=== PATIENT | female | born 1950 | race Caucasian/White ===

== ENCOUNTER 2022-07-31 09:52 | Inpatient (IN) ==
[2022-07-31] MEDS ORDERED: IOPAMIDOL 100 ML BOTTLE IV ONE (09:53)
[2022-07-31 10:46] LABS: POC Calcium, Ionized 1.18 (1.16-1.32); POC Creatinine 0.6 (0.6-1.2); POC Potassium 3.7 (3.3-5.1)
--- NOTE | 2022-07-31 11:24 | Emergency Department Note ---
HPI General Chief complaint: Extremity Injury, Lower Stated complaint: hip pain Time Seen by Provider: 07/31/22 10:06 Source: EMS Mode of arrival: EMS Limitations: physical limitation History of Present Illness HPI Narrative: Narrative: This is a 71-year-old female who presents to the emergency department with comp laints of right hip pain. Patient states she has history of chronic back pain with degenerative changes and scoliosis. She is seen the pain clinic for this. She had a CT scan of her lumbar spine yesterday and was called today telling her she has a hip fracture and to come to the emergency department. Patient states she has had right lower back and hip pain for months, however over the past sev eral days it has become much worse. It is severe enough she is unable to ambulate on her own. She has too much pain to move her right leg. She denies numbness in her legs. She has not had a fever. Patient has multiple medical problems. She denies cancer history. Related Data Home Medications Medication Instructions Recorded Confirmed aspirin 81 mg tablet,delayed 81 mg PO QDAY 12/03/14 07/31/22 release calcium carb,citrat 500 1 each PO DAILY 01/21/15 07/31/22 mg-magnesium #12 250 mg-vit D3 200 unit tablet fish oil-dha-epa 1,200 mg-144 1 each PO DAILY 01/21/15 07/31/22 mg-216 mg capsule multivitamin 1 each PO DAILY 01/21/15 07/31/22 flunisolide 25 mcg (0.025 %) nasal 2 spray NATO BID 05/29/15 07/31/22 spray cholecalciferol (vitamin D3) 50 2,000 unit PO DAILY 02/02/17 07/31/22 mcg (2,000 unit) tablet glucosamine 116 mg-chondroitin 100 1 cap PO BID 06/12/19 07/31/22 mg-dietary supplement #25 capsule coenzyme Q10 75 mg capsule (Ultra See Rx Instructions PO .COMPLEX 10/31/19 07/31/22 CoQ10) Estradiol Transdermal 0.4 mg transdermal QDAY 07/31/22 07/31/22 Lactobacillus 2 cap PO BID 07/31/22 07/31/22 acidophilus-Bifidobac.animalis 2.5 billion cell capsule (Daily Probiotic) fluticasone 500 mcg-salmeterol 50 1 ea inhalation BID 07/31/22 07/31/22 mcg/dose blistr powdr for inhalation (Advair Diskus) folic acid 1 mg PO QDAY 07/31/22 07/31/22 turmeric root extract 500 mg 1 mg PO BID 07/31/22 07/31/22 capsule (Curcuplex-95) Previous Rx's Medication Instructions Recorded diabetic shoes #2 ea 02/02/17 albuterol sulfate 90 mcg/actuation 180 mcg inhalation Q6H PRN 08/15/19 aerosol inhaler bronchospasm #18 grams VPAP #1 ea 11/08/19 mometasone-formoterol HFA 200 2 puff inhalation BID #13 grams 12/26/19 mcg-5 mcg/actuation aerosol inhaler (Dulera) azelastine 0.05 % eye drops 1 drp ophthalmic (eye) BID #6 mL 01/04/20 blood sugar diagnostic (OneTouch #50 ea 08/28/20 Verio test strips) blood-glucose meter (OneTouch #1 ea 08/28/20 Verio Meter) Testosterone Transdermal 5 mg transdermal .QD #30 grams 09/12/21 montelukast 10 mg tablet See Rx Instructions .Route 12/01/21 .COMPLEX #90 tabs omeprazole 40 mg capsule,delayed 40 mg PO QDAY #90 caps 12/16/21 release tolterodine 2 mg tablet 2 mg PO BID PRN overactive bladder 12/16/21 #180 tabs metaxalone 800 mg tablet 800 mg PO TID PRN muscle pain #270 01/30/22 tabs progesterone micronized 100 mg 100 mg PO QPM #90 caps 03/13/22 capsule gabapentin 600 mg tablet See Rx Instructions .Route 05/04/22 .COMPLEX #270 tabs losartan 25 mg tablet 25 mg PO QDAY #100 tabs 05/28/22 spironolactone 25 mg tablet 50 mg PO QDAY #180 tabs 05/29/22 tramadol 50 mg tablet 50 mg PO Q4H PRN pain #190 tabs 06/11/22 metoprolol succinate 50 mg 50 mg PO QDAY #90 tabs 06/16/22 tablet,extended release 24 hr celecoxib 200 mg capsule 200 mg PO QDAY #100 caps 06/22/22 modafinil 200 mg tablet 200 mg PO QAM #90 tabs 06/24/22 rosuvastatin 20 mg tablet 20 mg PO QDAY #90 tabs 06/24/22 citalopram 20 mg tablet 20 mg PO QDAY #90 tabs 07/15/22 levothyroxine 25 mcg tablet 25 mcg PO QDAY #90 tabs 07/15/22 ondansetron 4 mg disintegrating 4 mg PO Q6H PRN nausea and 07/17/22 tablet vomiting #20 tabs hydroxyzine HCl 25 mg tablet 25 mg PO BID PRN itching #60 tabs 07/28/22 oxycodone-acetaminophen 7.5 mg-325 1 tab PO Q4-6H PRN pain #40 tabs 07/28/22 mg tablet potassium chloride 10 mEq 10 meq PO BID #180 tabs 07/30/22 tablet,extended release Allergies Allergy/AdvReac Type Severity Reaction Status Date / Time nitrofurantoin Allergy Intermediate Does not Verified 07/31/22 09:55 [From Macrobid] recall what the reaction was morphine Allergy Unknown nausea, Verified 07/31/22 09:55 vomiting Amoxicillin AdvReac Intermediate yeast Verified 07/31/22 09:55 infection cefdinir AdvReac Intermediate Diarrhea Verified 07/31/22 09:55 pravastatin [From Pravachol] AdvReac Intermediate Chest Pain Verified 07/31/22 09:55 Zolpidem [From Ambien] AdvReac Intermediate psychosis Verified 07/31/22 09:55 bupropion AdvReac Mild uncontrollable Verified 07/31/22 09:55 movement droperidol AdvReac Mild crawls the Verified 07/31/22 09:55 dale lisinopril AdvReac Unknown Cough Verified 07/31/22 09:55 Review of Systems ROS ROS Narrative: Narrative: All systems ED: reviewed and negative except as stated. 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) Chronic kidney disease (CKD), stage II (mild) (Chronic) DDD (degenerative disc disease) (Chronic) Diabetes mellitus, type II (Chronic 03/16/11) Estrella-Danlos disease (Chronic) Gastroesophageal reflux (Chronic) Hyperlipidemia (Chronic) Hypertension, essential (Chronic) Hypopotassemia (Chronic) Mitral valve disorder (Chronic) Osteoarthrosis (Chronic) Sleep apnea (Chronic) Diabetic peripheral neuropathy (Chronic) Fundic gland polyps of stomach, benign (Chronic 05/29/15) Menopausal and postmenopausal disorder (Chronic) Insomnia (Chronic) Excessive daytime sleepiness (Chronic) Degenerative joint disease (Chronic) Peripheral Vascular Disease (Chronic) Adenoma of large intestine (Chronic) Mass (Chronic) Adverse reaction to drug (Chronic) Polycythemia (Chronic) Pain in right shoulder (Chronic) Chronic SI joint pain (Chronic) Other spondylosis with radiculopathy, cervical region (Chronic) Chronic pain (Chronic) Osteoarthritis of pelvis (Chronic) Osteoarthritis of hip (Chronic) Pulmonary hypertension (Chronic) Allergic rhinitis (Chronic) Diabetes mellitus with hyperglycemia (Chronic) Medicare annual wellness visit, initial (Chronic) Cervicalgia (Chronic) Depression (Chronic) Myofascial pain (Chronic) Medical History Alkalosis Allergic rhinitis Arthropathy Unspecified; multiple sites Asthma 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) Dr.Jeff Pendleton Blepharitis Borderline glaucoma with anatomical narrow angle Cervicalgia Chronic kidney disease (CKD), stage II (mild) Chronic pain Chronic SI joint pain Conjunctivitis, allergic, chronic DDD (degenerative disc disease) Degenerative joint disease Bilateral glenohumeral degenerative joint disease, severe Depression Diabetes mellitus with hyperglycemia Diabetes mellitus, type II (03/16/11) Diet controlled Diabetic peripheral neuropathy Edema Estrella-Danlos disease Excessive daytime sleepiness Fundic gland polyps of stomach, benign (05/29/15) 05/29/2015-Deep Gastroesophageal reflux Hyperlipidemia Hypertension, essential Hypertensive chronic kidney disease Hypopotassemia Insomnia Medicare annual wellness visit, initial Menopausal and postmenopausal disorder Mitral valve disorder Myofascial pain Nuclear sclerosis Obstructive sleep apnea Osteoarthritis of hip Osteoarthritis of pelvis Osteoarthrosis Other spondylosis with radiculopathy, cervical region Pain in right shoulder Pulmonary hypertension Pulmonary hypertension, secondary Radiculopathy, thoracic region Sleep apnea Central on BiPAP Spinal cord disease Scoliosis, idiopathic Spondylolysis of lumbosacral region Vitamin D deficiency Surgical History Abnormal colonoscopy 01/02/11 - adenoma. 05/25/16 -diverticuli, large villous adenoma. Do flexible sigmoidoscopy one year. 05/26/17-No villanous adenoma. Flexible sigmoidoscopy in May of 2018. Family history of total abdominal hysterectomy and bilateral salpingo- oophorectomy History of ankle fusion Left X2 History of bladder surgery History of carpal tunnel repair History of cataract surgery (04/02/14) 04/02/14 - Right eye and 04/17/14 Left eye History of cholecystectomy History of deviated nasal septum History of knee replacement Right History of left shoulder replacement 09/15/16 - Left reverse total shoulder replacement History of surgery SI Joint Injection Left w/sed 08/12/15 Shoulder Joint Injection Right w/sed 08/12/15 Revision of SCS Generator [facility] 01/25/15 TESI #1 T11-12 w/sed (01-13-11) History of tonsillectomy Hx of esophagogastroduodenoscopy (05/29/15) 05/29/2015-Adame Status post transposition of nerve Ulnar Nerve - Right Family History Unknown Depression "everyone" Cardiac disease "everyone" Brother Essential hypertension Skin Abnormalities squamous cell Sister Essential hypertension Father , at 73 years old Acute myocardial infarction Happened when he was 55 years old Mother Skin Abnormalities Social History Smoking Status: Never smoker Alcohol Intake Frequency: holiday/special occasion only Substance Use: does not use Exam Narrative Narrative: Narrative: General Limitations: physical limitation General appearance: Present alert, obese and other (Patient is laying comfortably on the gurney.) Head Head: Present atraumatic and normocephalic Eye Eye: Present EOMI Respiratory Respiratory: Present normal lung sounds bilaterally Cardiovascular Cardiovascular: Present regular rate and systolic murmur (1/6) Adbominal Abdominal: Present soft; Absent tenderness Back Back: Present normal inspection and other (Tender over the right ilium. ); Absent spinous process tenderness Other Other information: Well healed scar over the posterior right hip. Tenderness over the posterior and lateral hip. Limited ROM of the right hip. 4/5 strength of the RLE. Sensation intact. 2+ dorsalis pedis pulse. Course Vital Signs Vital signs: Vital Signs Temperature 97.3 F 07/31/22 09:52 Pulse Rate 77 07/31/22 09:52 Respiratory Rate 16 07/31/22 09:52 Blood Pressure 138/88 07/31/22 09:52 Pulse Oximetry (%) 99 07/31/22 09:52 Oxygen Delivery Method Room Air 07/31/22 09:52 Temperature 97.3 F 07/31/22 17:05 Pulse Rate 90 07/31/22 17:16 Respiratory Rate 16 07/31/22 17:05 Blood Pressure 129/90 07/31/22 17:16 Pulse Oximetry (%) 100 07/31/22 17:16 Oxygen Delivery Method Room Air 07/31/22 09:52 MDM MDM Narrative Medical decision making narrative: Narrative: CBC and CMP were ordered. Patient was treated with IV Dilaudid for pain. She did get relief temporarily with this. CT that was performed yesterday was reviewed. This shows a lytic lesion with a pathological fracture in the right ilium. A CT of the chest abdomen pelvis was ordered. This shows no other bony lesions. 5 x 3 cm osteolytic lesion in the right supra-acetabular region with an associated nondisplaced transverse pathologic fracture. It is adjacent adjacent to the acetabular component of the total hip prostheses. In isolation, this is likely related to the hip prostheses-perhaps aggressive granulomatosis or, less likely, infection. Suggest referral to a hip subspecialist orthopedic surgery. Patient was discussed with Dr. Calvillo. He recommended the patient be discharged home and follow-up with him in his clinic next week. The fracture that the patient has is not operable. It is possible that she will have a total hip revision in the future on an elective basis. Patient was very uncomfortable with this plan as she is unable to ambulate or get in and out of her house by herself. She is in extreme amount of pain. She has been treated with IV Dilaudid in the emergency department does get temporary relief with this, however the pain does increase afterwards. Attempt was made to find assisted living placement for the patient, this is not yet approved by insurance. I have discussed the patient with hospitalist who is agreed to admit her. Patient agrees to work with therapy while in the hospital. Lab Data 07/31/22 10:08 02/17/23 10:08 Labs: Lab Results 07/31/22 07/31/22 07/31/22 Range/Units 10:08 10:08 10:42 WBC 8.1 (4.5-11.0) K/mcL RBC 5.17 (3.59-5.38) M/mcL Hgb 14.0 (11.2-15.7) g/dL Hct 44.3 (34.1-44.9) % POC Hct 40.0 (36-48) MCV 85.7 (80.0-100.0) fL MCH 27.1 (26.0-34.0) pg MCHC 31.6 (31.0-36.0) g/dL RDW 14.2 (11.5-14.5) % Plt Count 324 (140-440) K/mcL MPV 9.0 (8.8-12.5) fL Immature Gran % (Auto) 0.5 (0.0-0.5) % Neut % (Auto) 73.9 (38.0-78.0) % Lymph % (Auto) 16.0 (15.5-49.0) % [place] % (Auto) 7.2 (1.0-12.0) % Eos % (Auto) 1.9 (0.0-7.0) % Baso % (Auto) 0.5 (0.0-2.0) % Lymph # (Auto) 1.30 L (1.50-4.80) K/mcL [place] # (Auto) 0.58 (0.10-0.90) K/mcL Eos # (Auto) 0.15 (0.00-0.70) K/mcL Baso # (Auto) 0.04 (0.00-0.30) K/mcL Immature Gran # 0.04 (0.00-0.05) K/mcl Absolute Neutrophils 5.99 (1.80-8.00) K/mcL POC Sodium 142 (133-145) Sodium 139 (133-145) mmol/L POC Potassium 3.7 (3.3-5.1) Potassium 3.9 (3.3-5.1) mmol/L POC Chloride 104 (96-108) Chloride 102 (96-108) mmol/L Carbon Dioxide 26 (22-30) mmol/L POC Total CO2 28.0 (22-30) Anion Gap 11.0 (8.0-16.0) POC BUN 22 H (6-20) BUN 21 (8-23) mg/dL Creatinine 0.7 (0.6-1.1) mg/dL POC Creatinine 0.6 (0.6-1.2) GFR Calculation 88 Glucose 89 (70-105) mg/dL POC Glucose 99 (70-105) Calcium 9.0 (8.6-10.4) mg/dL POC WB Ioniz Calcium 1.18 (1.16-1.32) Total Bilirubin 0.5 (0.1-1.0) mg/dL AST 19 (<32) U/L ALT 20 (<40) U/L Alkaline Phosphatase 72 (39-117) U/L Total Protein 6.7 (5.9-8.4) gm/dL Albumin 3.9 (3.2-5.2) gm/dL Globulin 2.8 (2.2-3.7) gm/dL Albumin/Globulin Ratio 1.4 (1.0-2.3) Discharge Plan Patient/Caregiver Discharge Instructions Pt seen by INSPECTOR INSULATION/PA only: Yes Clinical Impression: Fracture, pelvis closed Patient Disposition: Xfer As Inpt ([facility]) Follow up with: Sony Sorenson PA-C [Primary Care Provider] - Prescriptions: No Action albuterol sulfate 90 mcg/actuation HFA aerosol inhaler 180 mcg INHALATION Q6H PRN (Reason: bronchospasm) Qty: 18 1RF Dulera 200-5 mcg/actuation HFA aerosol inhaler 2 puff INHALATION BID Qty: 13 3RF Rx Instructions: uses either dulera or symbicort, not both azelastine 0.05 % drops 1 drp OPHTHALMIC BID Qty: 6 7RF (DME) blood-glucose meter [OneTouch Verio Meter] Misc See Rx Instructions .ROUTE .MEDSUPPLY Qty: 1 0RF Rx Instructions: Check blood sugar once daily (DME) OneTouch Verio test strips Strip See Rx Instructions .ROUTE .MEDSUPPLY Qty: 50 4RF Rx Instructions: Check blood sugar once daily Testosterone Transdermal 5 mg TRANSDERMA .QD Qty: 30 3RF montelukast 10 mg tablet See Rx Instructions .ROUTE .COMPLEX Qty: 90 3RF Dose Instruction: TAKE ONE TABLET BY MOUTH ONE TIME DAILY IN THE EVENING Rx Instructions: TAKE ONE TABLET BY MOUTH ONE TIME DAILY IN THE EVENING omeprazole 40 mg capsule,delayed release(DR/EC) 40 mg PO QDAY Qty: 90 3RF tolterodine 2 mg tablet 2 mg PO BID PRN (Reason: overactive bladder) Qty: 180 1RF metaxalone 800 mg tablet 800 mg PO TID PRN (Reason: muscle pain) Qty: 270 0RF progesterone micronized 100 mg capsule 100 mg PO QPM Qty: 90 3RF gabapentin 600 mg tablet See Rx Instructions .ROUTE .COMPLEX Qty: 270 3RF Dose Instruction: TAKE ONE TABLET BY MOUTH THREE TIMES DAILY Rx Instructions: TAKE ONE TABLET BY MOUTH THREE TIMES DAILY losartan 25 mg tablet 25 mg PO QDAY Qty: 100 3RF spironolactone 25 mg tablet 50 mg PO QDAY Qty: 180 3RF metoprolol succinate 50 mg tablet extended release 24 hr 50 mg PO QDAY Qty: 90 0RF celecoxib 200 mg capsule 200 mg PO QDAY Qty: 100 2RF modafinil 200 mg tablet 200 mg PO QAM Qty: 90 0RF rosuvastatin 20 mg tablet 20 mg PO QDAY Qty: 90 0RF levothyroxine 25 mcg tablet 25 mcg PO QDAY Qty: 90 3RF citalopram 20 mg tablet 20 mg PO QDAY Qty: 90 1RF hydroxyzine HCl 25 mg tablet 25 mg PO BID PRN (Reason: itching) Qty: 60 0RF oxycodone-acetaminophen 7.5-325 mg tablet 1 tab PO Q4-6H MDD 4 PRN (Reason: pain) Qty: 40 0RF potassium chloride 10 mEq tablet extended release 10 meq PO BID Qty: 180 3RF Rx Instructions: give with food (meal/snack) aspirin 81 mg tablet,delayed release (DR/EC) 81 mg PO QDAY Ultra CoQ10 75 mg capsule See Rx Instructions PO .COMPLEX Rx Instructions: unknown PO unknown; (DME) diabetic shoes Qty: 2 0RF Rx Instructions: Wear daily (DME) VPAP 0 .Route .MEDSUPPLY Qty: 1 0RF Dose Instruction: As directed Rx Instructions: As directed glucosamine 116 mg-chondroitin 100 mg-dietary supplement #25 capsule 116-100 mg capsule 1 cap PO BID tramadol 50 mg tablet 50 mg PO Q4H MDD 7 PRN (Reason: pain) Qty: 190 3RF Hold Instructions: Doctor's Order Rx Instructions: *Must last 30 days* multivitamin 1 EACH tablet 1 each PO DAILY fish oil-dha-epa 1 EACH capsule 1 each PO DAILY calcium carb,[id number] D3 1 EACH tablet 1 each PO DAILY cholecalciferol (vitamin D3) 2,000 UNIT tablet 2,000 unit PO DAILY flunisolide 1 SPRAY bottle 2 spray NATO BID ondansetron 4 mg tablet,disintegrating 4 mg PO Q6H PRN (Reason: nausea and vomiting) Qty: 20 0RF fluticasone propion-salmeterol [Advair Diskus] 500-50 mcg/dose blister with device 1 ea INHALATION BID turmeric root extract [Curcuplex-95] 500 mg Capsule 1 mg PO BID Daily Probiotic 2.5 billion cell Capsule 2 cap PO BID folic acid 1 mg PO QDAY Estradiol Transdermal 0.4 mg TRANSDERMA QDAY Rx Instructions: Continue same compound
[2022-07-31 11:33] LABS: Basophils # (Auto) 0.04 K/mcL (0.00-0.30); Basophils % (Auto) 0.5 % (0.0-2.0); Eosinophils # (Auto) 0.15 K/mcL (0.00-0.70); Eosinophils % (Auto) 1.9 % (0.0-7.0); Hematocrit 44.3 % (34.1-44.9); Mean Cell Volume 85.7 fL (80.0-100.0); Mean Corpuscular HGB Conc 31.6 g/dL (31.0-36.0); Monocytes # (Auto) 0.58 K/mcL (0.10-0.90); Monocytes % (Auto) 7.2 % (1.0-12.0); Neutrophils % (Auto) 73.9 % (38.0-78.0); Platelet Count 324 K/mcL (140-440); RBC 5.17 M/mcL (3.59-5.38); Red Cell Distribution Width 14.2 % (11.5-14.5); WBC 8.1 K/mcL (4.5-11.0)
[2022-07-31] MEDS: HYDROmorphone 0.5 MG/0.5 ML SYRINGE IV PRN ×3 (11:57→15:01)
[2022-07-31 12:08] LABS: ALT/SGPT 20 U/L (<40); AST/SGOT 19 U/L (<32); Albumin 3.9 gm/dL (3.2-5.2); Albumin/Globulin Ratio 1.4 (1.0-2.3); Alkaline Phosphatase 72 U/L (39-117); Bilirubin,Total 0.5 mg/dL (0.1-1.0); Blood Urea Nitrogen 21 mg/dL (8-23); Carbon Dioxide 26 mmol/L (22-30); Chloride 102 mmol/L (96-108); Globulin 2.8 gm/dL (2.2-3.7); Glomerular Filtration Rate 88; Glucose 89 mg/dL (70-105)
--- NOTE | 2022-07-31 12:18 | Cat Scan Report ---
CLINICAL INFORMATION: Lytic lesion right supra acetabulum evaluate for primary malignancy COMPARISON: Abdomen and pelvic CT 04/15/2005. Lumbar spine CT 07/30/2022 TECHNIQUE: Enteric contrast was utilized. 80 cc of Isovue-370 were injected intravenously, and 50 seconds later, 0.625 mm helical slices were obtained from the lung apices through the subtrochanteric regions of the femurs. Following reconstruction, 2.5 mm sagittal, coronal and axial reformatted images were processed and reviewed at multiple windows and levels. 7 mm MIP reconstructions were obtained through the lungs to optimize nodule detection.The exam was performed using radiation dose optimization techniques including, but not limited to, automated exposure control, adjustment of the mA and/or kV according to patient size and use of iterative reconstruction technique. FINDINGS: Pulmonary parenchymal windows show marked right diaphragm elevation resulting in compressive subsegmental atelectasis in the overlying right middle and lower lobes. The remaining lung are clear.. Pleural spaces are unremarkable-no effusions. Mediastinal windows show the heart is grossly normal in size and configuration. The pulmonary arteries are normal diameter well-opacified without evidence of embolus. Thoracic aorta is also normal diameter and well-opacified. There is no adenopathy in the mediastinal, hilar or axillary regions. Esophagus is grossly normal. The thyroid is unremarkable. Abdominal images show mild fatty change within the liver. The gallbladder is surgically absent. Intrahepatic, common hepatic and common bile ducts are moderately dilated: CBD is 17 mm. This has increased from 14 mm on the [address] Findings bowel post cholecystectomy papillary stenosis. Both kidneys, adrenal glands, spleen, pancreas and aorta, including aortic branches, are normal in size, configuration and attenuation without focal lesion. There is no free air, free fluid or adenopathy. Pelvic images show normal urinary bladder. Hysterectomy/ oophorectomy changes noted. The stomach, small bowel, retrocecal appendix and large bowel are grossly normal. Bone windows show a 5 x 3 cm osteolytic lesion in the right supra-acetabular region-superior to the acetabular component right total hip prostheses. There is a transverse nondisplaced pathologic fracture through this lesion. It was not present on the 2005 exam. There are no other osteolytic lesions seen throughout the chest, abdomen or pelvis. Degeneration present in the lumbar spine and severe scoliosis in the thoracolumbar spine. IMPRESSION: 5 x 3 cm osteolytic lesion in the right supra-acetabular region with an associated nondisplaced transverse pathologic fracture. It is adjacent adjacent to the acetabular component of the total hip prostheses. In isolation, this is likely related to the hip prostheses-perhaps aggressive granulomatosis or, less likely, infection. Suggest referral to a hip subspecialist orthopedic surgery. Moderate dilatation of the intrahepatic and common bile ducts compatible with post cholecystectomy papillary stenosis. Moderate progression since a comparison CT 17 years ago. Marked elevation right diaphragm resulting in subsegmental atelectasis in the overlying right middle lower lobe. This has progressed since 2004 Interpreted and Authenticated by: Jairo Norton 07/31/22
--- NOTE | 2022-07-31 16:16 | Internal Med History&Physical ---
HPI History of Present Illness Patient information: Note initiated : 07/31/22 at 4:14 pm Service Date, if different from initiated Date: [] Patient: Magda Sosa a 71 y/o F admitted on for hip pain. Chief Complaint: [] History of present illness: Ms. Sosa is a 71 year old F Presents to ED with Right hip pain. She says the right hip pain has been going on for about a month but worsened 2 weeks ago and then over the past week it been really painful shooting down into her right leg. She denies any trauma that she can remember although she does say she sat down really hard on her bottom for several months ago. CT of the pelvis showed a 5x3cm osteolytic lesion right supra-acetabular region with a transverse nondisplaced likely pathological fracture. Case was discussed with Dr. Calvillo, this was nonoperative. He recommended patient discharged home with follow-up with him in the office. However the patient has uncontrolled pain is and is unstable on her feet and lives by herself. Patient felt to be unsafe discharge and thus will be admitted and likely need placement to a rehab facility and then will follow-up with Dr. Calvillo Once out of the hospital. Patient denies any fever chills lightheadedness nausea vomiting chest pain shortness of breath. Review of Systems: denies headache/fever/chills/nausea/vomiting/chest or abdominal pain/cough/dyspnea/diarrhea. Otherwise see above. PHYSICAL EXAM: General: Alert, Awake, No acute Distress, obese Eyes/N/T: EOMI, no scleral icterus, PERRL, Head/Neck: neck supple, full ROM, normocephalic atraumatic CV: RRR, No murmurs, normal s1/s2 Pulm: Clear b/l, no wheezing/rhonchi/rales, no respiratory distress Abd: soft, nontender, +BS x4 Ext: no clubbing/cyanosis/edema, nontender Neuro: Alert, no focal deficits, moves all extremities, CN 2-12 grossly intact, sensations intact b/l upper/lower Psychiatric: Skin: warm/dry, normal color PFSH PFSH All Active Problems Asthma exacerbation (Acute) Dehydration (Acute) Acute viral syndrome (Acute) Gastroenteritis (Acute) Chronic, continuous use of opioids (Acute) Asthma (Chronic) Blepharitis (Chronic) 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) Chronic kidney disease (CKD), stage II (mild) (Chronic) DDD (degenerative disc disease) (Chronic) Diabetes mellitus, type II (Chronic 03/16/11) Estrella-Danlos disease (Chronic) Gastroesophageal reflux (Chronic) Hyperlipidemia (Chronic) Hypertension, essential (Chronic) Hypopotassemia (Chronic) Mitral valve disorder (Chronic) Osteoarthrosis (Chronic) Sleep apnea (Chronic) Diabetic peripheral neuropathy (Chronic) Fundic gland polyps of stomach, benign (Chronic 05/29/15) Menopausal and postmenopausal disorder (Chronic) Insomnia (Chronic) Excessive daytime sleepiness (Chronic) Degenerative joint disease (Chronic) Peripheral Vascular Disease (Chronic) Adenoma of large intestine (Chronic) Mass (Chronic) Adverse reaction to drug (Chronic) Polycythemia (Chronic) Pain in right shoulder (Chronic) Chronic SI joint pain (Chronic) Other spondylosis with radiculopathy, cervical region (Chronic) Chronic pain (Chronic) Osteoarthritis of pelvis (Chronic) Osteoarthritis of hip (Chronic) Pulmonary hypertension (Chronic) Allergic rhinitis (Chronic) Diabetes mellitus with hyperglycemia (Chronic) Medicare annual wellness visit, initial (Chronic) Cervicalgia (Chronic) Depression (Chronic) Myofascial pain (Chronic) Medical History Alkalosis Allergic rhinitis Arthropathy Unspecified; multiple sites Asthma 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) Dr.Jeff Pendleton Blepharitis Borderline glaucoma with anatomical narrow angle Cervicalgia Chronic kidney disease (CKD), stage II (mild) Chronic pain Chronic SI joint pain Conjunctivitis, allergic, chronic DDD (degenerative disc disease) Degenerative joint disease Bilateral glenohumeral degenerative joint disease, severe Depression Diabetes mellitus with hyperglycemia Diabetes mellitus, type II (03/16/11) Diet controlled Diabetic peripheral neuropathy Edema Estrella-Danlos disease Excessive daytime sleepiness Fundic gland polyps of stomach, benign (05/29/15) 05/29/2015-Deep Gastroesophageal reflux Hyperlipidemia Hypertension, essential Hypertensive chronic kidney disease Hypopotassemia Insomnia Medicare annual wellness visit, initial Menopausal and postmenopausal disorder Mitral valve disorder Myofascial pain Nuclear sclerosis Obstructive sleep apnea Osteoarthritis of hip Osteoarthritis of pelvis Osteoarthrosis Other spondylosis with radiculopathy, cervical region Pain in right shoulder Pulmonary hypertension Pulmonary hypertension, secondary Radiculopathy, thoracic region Sleep apnea Central on BiPAP Spinal cord disease Scoliosis, idiopathic Spondylolysis of lumbosacral region Vitamin D deficiency Surgical History Abnormal colonoscopy 01/02/11 - adenoma. 05/25/16 -diverticuli, large villous adenoma. Do flexible sigmoidoscopy one year. 05/26/17-No villanous adenoma. Flexible sigmoidoscopy in May of 2018. Family history of total abdominal hysterectomy and bilateral salpingo- oophorectomy History of ankle fusion Left X2 History of bladder surgery History of carpal tunnel repair History of cataract surgery (04/02/14) 04/02/14 - Right eye and 04/17/14 Left eye History of cholecystectomy History of deviated nasal septum History of knee replacement Right History of left shoulder replacement 09/15/16 - Left reverse total shoulder replacement History of surgery SI Joint Injection Left w/sed 08/12/15 Shoulder Joint Injection Right w/sed 08/12/15 Revision of SCS Generator [facility] 01/25/15 TESI #1 T11-12 w/sed (01-13-11) History of tonsillectomy Hx of esophagogastroduodenoscopy (05/29/15) 05/29/2015-Adame Status post transposition of nerve Ulnar Nerve - Right Family History Unknown Depression "everyone" Cardiac disease "everyone" Brother Essential hypertension Skin Abnormalities squamous cell Sister Essential hypertension Father , at 73 years old Acute myocardial infarction Happened when he was 55 years old Mother Skin Abnormalities Social History adopted: No caregiver/support person: No foster care: No household members: spouse housing: house lives independently: Yes marital status: education level: college service: No intermediate: No occupational status: retired pets and animals: Yes pets and animals: cat(s) hx recent travel: No sexually active: Yes (Not Recently due to illness) well-balanced diet: about half the time physical activity: none smoking status: Never smoker alcohol intake frequency: holiday/special occasion only substance use type: does not use dylan/spiritism: Judaism special dylan needs: No seatbelt use: always helmet use: Yes (Does not ever need one anymore but did when it was needed) 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 victim of physical abuse: No victim of emotional abuse: Yes (Past) victim of sexual abuse: No MEDS/ALLERGIES Home Medications and Allergies Home Medications Medication Instructions Recorded Confirmed Type aspirin 81 mg tablet,delayed 81 mg PO QDAY 12/03/14 07/31/22 History release calcium carb,citrat 500 1 each PO DAILY 01/21/15 07/31/22 History mg-magnesium #12 250 mg-vit D3 200 unit tablet fish oil-dha-epa 1,200 mg-144 1 each PO DAILY 01/21/15 07/31/22 History mg-216 mg capsule multivitamin 1 each PO DAILY 01/21/15 07/31/22 History flunisolide 25 mcg (0.025 %) nasal 2 spray NATO BID 05/29/15 07/31/22 History spray cholecalciferol (vitamin D3) 50 2,000 unit PO DAILY 02/02/17 07/31/22 History mcg (2,000 unit) tablet diabetic shoes #2 ea 02/02/17 07/31/22 Rx glucosamine 116 mg-chondroitin 100 1 cap PO BID 06/12/19 07/31/22 History mg-dietary supplement #25 capsule albuterol sulfate 90 mcg/actuation 180 mcg inhalation Q6H PRN 08/15/19 07/31/22 Rx aerosol inhaler bronchospasm #18 grams coenzyme Q10 75 mg capsule (Ultra See Rx Instructions PO .COMPLEX 10/31/19 07/31/22 History CoQ10) VPAP #1 ea 11/08/19 07/31/22 Rx mometasone-formoterol HFA 200 2 puff inhalation BID #13 grams 12/26/19 07/31/22 Rx mcg-5 mcg/actuation aerosol inhaler (Dulera) azelastine 0.05 % eye drops 1 drp ophthalmic (eye) BID #6 mL 01/04/20 07/31/22 Rx blood sugar diagnostic (OneTouch #50 ea 08/28/20 07/31/22 Rx Verio test strips) blood-glucose meter (OneTouch #1 ea 08/28/20 07/31/22 Rx Verio Meter) Testosterone Transdermal 5 mg transdermal .QD #30 grams 09/12/21 07/31/22 Rx montelukast 10 mg tablet See Rx Instructions .Route 12/01/21 07/31/22 Rx .COMPLEX #90 tabs omeprazole 40 mg capsule,delayed 40 mg PO QDAY #90 caps 12/16/21 07/31/22 Rx release tolterodine 2 mg tablet 2 mg PO BID PRN overactive bladder 12/16/21 07/31/22 Rx #180 tabs metaxalone 800 mg tablet 800 mg PO TID PRN muscle pain #270 01/30/22 07/31/22 Rx tabs progesterone micronized 100 mg 100 mg PO QPM #90 caps 03/13/22 07/31/22 Rx capsule gabapentin 600 mg tablet See Rx Instructions .Route 05/04/22 07/31/22 Rx .COMPLEX #270 tabs losartan 25 mg tablet 25 mg PO QDAY #100 tabs 05/28/22 07/31/22 Rx spironolactone 25 mg tablet 50 mg PO QDAY #180 tabs 05/29/22 07/31/22 Rx tramadol 50 mg tablet 50 mg PO Q4H PRN pain #190 tabs 06/11/22 07/31/22 Rx metoprolol succinate 50 mg 50 mg PO QDAY #90 tabs 06/16/22 07/31/22 Rx tablet,extended release 24 hr celecoxib 200 mg capsule 200 mg PO QDAY #100 caps 06/22/22 07/31/22 Rx modafinil 200 mg tablet 200 mg PO QAM #90 tabs 06/24/22 07/31/22 Rx rosuvastatin 20 mg tablet 20 mg PO QDAY #90 tabs 06/24/22 07/31/22 Rx citalopram 20 mg tablet 20 mg PO QDAY #90 tabs 07/15/22 07/31/22 Rx levothyroxine 25 mcg tablet 25 mcg PO QDAY #90 tabs 07/15/22 07/31/22 Rx ondansetron 4 mg disintegrating 4 mg PO Q6H PRN nausea and 07/17/22 07/31/22 Rx tablet vomiting #20 tabs hydroxyzine HCl 25 mg tablet 25 mg PO BID PRN itching #60 tabs 07/28/22 07/31/22 Rx oxycodone-acetaminophen 7.5 mg-325 1 tab PO Q4-6H PRN pain #40 tabs 07/28/22 07/31/22 Rx mg tablet potassium chloride 10 mEq 10 meq PO BID #180 tabs 07/30/22 07/31/22 Rx tablet,extended release Estradiol Transdermal 0.4 mg transdermal QDAY 07/31/22 07/31/22 History Lactobacillus 2 cap PO BID 07/31/22 07/31/22 History acidophilus-Bifidobac.animalis 2.5 billion cell capsule (Daily Probiotic) fluticasone 500 mcg-salmeterol 50 1 ea inhalation BID 07/31/22 07/31/22 History mcg/dose blistr powdr for inhalation (Advair Diskus) folic acid 1 mg PO QDAY 07/31/22 07/31/22 History turmeric root extract 500 mg 1 mg PO BID 07/31/22 07/31/22 History capsule (Curcuplex-95) Allergies Allergy/AdvReac Type Severity Reaction Status Date / Time nitrofurantoin Allergy Intermediate Does not Verified 07/31/22 09:55 [From Macrobid] recall what the reaction was morphine Allergy Unknown nausea, Verified 07/31/22 09:55 vomiting Amoxicillin AdvReac Intermediate yeast Verified 07/31/22 09:55 infection cefdinir AdvReac Intermediate Diarrhea Verified 07/31/22 09:55 pravastatin [From Pravachol] AdvReac Intermediate Chest Pain Verified 07/31/22 09:55 Zolpidem [From Ambien] AdvReac Intermediate psychosis Verified 07/31/22 09:55 bupropion AdvReac Mild uncontrollable Verified 07/31/22 09:55 movement droperidol AdvReac Mild crawls the Verified 07/31/22 09:55 dale lisinopril AdvReac Unknown Cough Verified 07/31/22 09:55 EXAM Constitutional Vitals: Temp Pulse Resp BP Pulse Ox O2 Del Method 97.3 F 63 16 117/105 97 Room Air 07/31/22 09:52 07/31/22 16:02 07/31/22 09:52 07/31/22 16:02 07/31/22 16:02 07/31/22 09:52 DATA Data Completed and Pending Labs: Labs from last 24 hours 07/31/22 07/31/22 07/31/22 10:42 10:08 10:08 WBC 8.1 RBC 5.17 Hgb 14.0 Hct 44.3 POC Hct 40.0 MCV 85.7 MCH 27.1 MCHC 31.6 RDW 14.2 Plt Count 324 MPV 9.0 Immature Gran % (Auto) 0.5 Neut % (Auto) 73.9 Lymph % (Auto) 16.0 [place] % (Auto) 7.2 Eos % (Auto) 1.9 Baso % (Auto) 0.5 Lymph # (Auto) 1.30 L [place] # (Auto) 0.58 Eos # (Auto) 0.15 Baso # (Auto) 0.04 Immature Gran # 0.04 Absolute Neutrophils 5.99 POC Sodium 142 Sodium 139 POC Potassium 3.7 Potassium 3.9 POC Chloride 104 Chloride 102 Carbon Dioxide 26 POC Total CO2 28.0 Anion Gap 11.0 POC BUN 22 H BUN 21 Creatinine 0.7 POC Creatinine 0.6 GFR Calculation 88 Glucose 89 POC Glucose 99 Calcium 9.0 POC WB Ioniz Calcium 1.18 Total Bilirubin 0.5 AST 19 ALT 20 Alkaline Phosphatase 72 Total Protein 6.7 Albumin 3.9 Globulin 2.8 Albumin/Globulin Ratio 1.4 A/P Narrative A/P Narrative: A: *Right pelvis fracture: Nonoperative *Intractable pain: *Inability to care for self at home/unstable on feet: *Obesity: BMI 42 *ALDO: On CPAP *COPD (2L O2@night): *DM2 w/Neuropathy: *Hypothyroidism: *CKD II: *Depression: *GERD: *HTN/HLD: P: -pain control -pt/ot -f/u with Dr. Calvillo outpt -home cpap -basal and ssi -cont home statin/vy/ssri/levothyrx -cont home IH -cont home ARB/BB -CM for placement -ppx: Lovenox / home ppi Time Spent With Patient Time: Total time spent is greater than 50% in coordination of care (as documented) at patient's floor/unit and/or counseling patient: Initial: Total time with patient: 55 - 74 minutes
[2022-07-31] MEDS ORDERED: ONDANSETRON 4 MG/2 ML VIAL IV PRN (18:44)
[2022-07-31] MEDS ORDERED: NON FORMULARY MEDICATION 1 DOSE MISCELL (Oxycodone-Acetaminophen 7.5-325 mg tablet) PO PRN (18:44)
[2022-07-31] MEDS ORDERED: ACETAMINOPHEN 325 MG TABLET PO PRN (18:44)
[2022-07-31] MEDS ORDERED: POTASSIUM CHLORIDE 40 MEQ in DEXTROSE 5% IN WATER 500 ML IV PRN (18:44)
[2022-07-31] MEDS ORDERED: POTASSIUM CHLORIDE 20 MEQ TABLET PO PRN ×2 (18:44)
[2022-07-31] MEDS ORDERED: DEXTROSE 31 GM ORAL.SUSP PO PRN (18:44)
[2022-07-31] MEDS ORDERED: IPRATROPIUM/ALBUTEROL 3 ML AMPUL.NEB NEB PRN (18:44)
[2022-07-31] MEDS ORDERED: MONTELUKAST 10 MG TABLET PO SCH (18:44)
[2022-07-31] MEDS ORDERED: POLYETHYLENE GLYCOL 3350 17 GM PACKET PO PRN (18:44)
[2022-07-31] MEDS ORDERED: SENNOSIDES 1 TABLET PO PRN (18:44)
[2022-07-31] MEDS ORDERED: DEXTROSE 50% 50 ML VIAL IV PRN (18:44)
[2022-07-31] MEDS ORDERED: METAXALONE 800 MG TABLET PO PRN (18:44)
[2022-07-31] MEDS ORDERED: TOLTERODINE 2 MG PO PRN (18:44)
[2022-07-31] MEDS ORDERED: MAGNESIUM SULFATE 2 GM/50 ML BAG IV PRN (18:44)
[2022-07-31] MEDS ORDERED: traMADol (PP) 50 MG TABLET (#4) PO PRN (18:44)
[2022-07-31] MEDS: INSULIN LISPRO 1 UNIT/0.01 ML UNIT SQ SCH ×2 (19:28→20:57)
[2022-07-31] MEDS: HYDROmorphone 1 MG/ML SYRINGE IV PRN ×2 (19:34→22:08)
[2022-07-31] MEDS: DOCUSATE SODIUM 100 MG CAPSULE PO SCH (20:56)
[2022-07-31] MEDS: 0.9 % SODIUM CHLORIDE 10 ML SYRINGE IV SCH (20:58)
[2022-07-31] MEDS ORDERED: AZELASTINE 0.05% OPHTHALMIC SCH (21:00)
[2022-07-31] MEDS ORDERED: [UNRECOGNIZED DRUG - OTHER] INHALATION SCH (21:00)
[2022-07-31] MEDS ORDERED: NON FORMULARY MEDICATION 1 DOSE MISCELL (Progesterone Micronized 100 mg capsule) PO SCH (21:00)
[2022-08-01] MEDS: HYDROmorphone 1 MG/ML SYRINGE IV PRN ×6 (01:36→23:16)
[2022-08-01] MEDS: 0.9 % SODIUM CHLORIDE 10 ML SYRINGE IV SCH ×3 (06:00→20:38)
[2022-08-01] MEDS: CELECOXIB 200 MG CAPSULE PO PRN (07:12)
[2022-08-01] MEDS: INSULIN LISPRO 1 UNIT/0.01 ML UNIT SQ SCH ×4 (07:30→20:36)
--- NOTE | 2022-08-01 07:58 | Internal Med Progress Note ---
SUBJECTIVE Subjective Patient information: Note initiated : 08/01/22 at 7:55 am Service Date, if different from initiated Date: [] Patient: Magda Sosa 71 y/o F admitted on 07/31/22 for hip pain. Chief Complaint: [] Interval history: History of present illness: Ms. Sosa is a 71 year old F Presents to ED with Right hip pain. She says the right hip pain has been going on for about a month but worsened 2 weeks ago and then over the past week it been really painful shooting down into her right leg. She denies any trauma that she can remember although she does say she sat down really hard on her bottom for several months ago. CT of the pelvis showed a 5x3cm osteolytic lesion right supra-acetabular region with a transverse nondisplaced likely pathological fracture. Case was discussed with Dr. Calvillo, this was nonoperative. He recommended patient discharged home with follow-up with him in the office. However the patient has uncontrolled pain is and is unstable on her feet and lives by herself. Patient felt to be unsafe discharge and thus will be admitted and likely need placement to a rehab facility and then will follow-up with Dr. Calvillo Once out of the hospital. Patient denies any fever chills lightheadedness nausea vomiting chest pain shortness of breath. / Complains of pain, relatively controlled. We will try to keep up more with that today. Will need to work with PT OT. Review of Systems: denies headache/fever/chills/nausea/vomiting/chest or abdominal pain/cough/dyspnea/diarrhea. Otherwise see above. PHYSICAL EXAM: General: Alert, Awake, No acute Distress, obese Eyes/N/T: EOMI, no scleral icterus Head/Neck: neck supple, full ROM, CV: RRR, 1/6SM, Pulm: Clear b/l, no wheezing/rhonchi/rales, no respiratory distress Abd: soft, nontender, +BS x4 Ext: no clubbing/cyanosis/edema, nontender Neuro: Alert, no focal deficits, moves all extremities, sensations intact b/l upper/lower Psychiatric: Skin: warm/dry, normal color Constitutional Vitals: Vital Signs Temp Pulse Resp BP Pulse Ox O2 Del Method O2 Flow Rate 97.5 F 60 16 127/67 99 CPAP 2 08/01/22 04:00 08/01/22 04:00 08/01/22 04:00 08/01/22 04:00 08/01/22 04:00 08/01/22 04:00 08/01/22 04:00 Period Temp Pulse Resp BP Sys/[place] Pulse Ox O2 Del Method O2 Flow Rate Last 24 Hr 97.3 F-98.6 F 60-90 16-16 111-150/63-129 90-100 CPAP-Room Air 2 Intake and Output 07/31/22 08/01/22 08/01/22 19:59 03:59 11:59 Intake Total 400 Output Total 1000 Balance -600 Weight 102.965 kg 103.238 kg Intake & Output: Intake & Output 07/31/22 08/01/22 08/01/22 19:59 03:59 11:59 Intake Total 400 Output Total 1000 Balance -600 Weight 102.965 kg 103.238 kg Intake: Oral 400 Output: Void Amount 1000 Other: Urine Appearance Clear Urine Color Yellow Urine Odor Normal OBJ DATA Labs 07/31/22 10:08 07/31/22 10:08 Labs: Abnormal Lab Results 07/31/22 07/31/22 10:42 10:08 Lymph # (Auto) 1.30 L POC BUN 22 H Meds: Medications Acetaminophen (Acetaminophen 325 Mg Tablet) 650 mg PO Q6HP PRN; Protocol PRN Reason: Per Pain Protocol/Fever > 101 Albuterol/Ipratropium (Ipratropium/Albuterol 3 Ml Ampul.Neb) 3 ml NEB Q4HP PRN PRN Reason: Shortness Of Breath Celecoxib (Celecoxib 200 Mg Capsule) 200 mg PO QDAY PRN PRN Reason: pain Last Admin: 08/01/22 07:12 Dose: 200 mg Citalopram Hydrobromide (Citalopram 20 Mg Tablet) 20 mg PO QDAY MIRIAM Dextrose (Dextrose 50% 50 Ml Vial) 0 ml IV UD PRN PRN Reason: Per Sliding Scale Diagnostic Test (Pha) (Accu-Chek 1 Each Strip) 1 each FS ACHS MIRIAM Last Admin: 07/31/22 20:57 Dose: Not Given Docusate Sodium (Docusate Sodium 100 Mg Capsule) 100 mg PO BID MIRIAM Last Admin: 07/31/22 20:56 Dose: 100 mg Enoxaparin Sodium (Enoxaparin 40 Mg/0.4 Ml Syringe) 40 mg SQ DAILY [facility] Glucose (Dextrose 31 Gm Oral.Susp) 15 gm PO PRN PRN PRN Reason: Hypoglycemia Hydromorphone HCl (Hydromorphone 1 Mg/Ml Syringe) 0 mg IV Q2HP PRN; Protocol PRN Reason: Per Pain Protocol Last Admin: 08/01/22 07:12 Dose: 1 mg Hydroxyzine HCl (Hydroxyzine 25 Mg Tablet) 25 mg PO BID PRN PRN Reason: itching Potassium Chloride 40 meq/ (Dextrose) 520 mls @ 130 mls/hr IV UD PRN PRN Reason: Potassium < 3 Magnesium Sulfate (Magnesium Sulfate) 2 gm in 50 mls @ 50 mls/hr IV UD PRN PRN Reason: Magnesium </= 1.6 Insulin Human Lispro (Insulin Lispro 1 Unit/0.01 Ml Unit) 0 unit SQ ACHS [facility]; Protocol Last Admin: 07/31/22 20:57 Dose: Not Given Levothyroxine Sodium (Levothyroxine 25 Mcg Tablet) 25 mcg PO QDAY [facility] Losartan Potassium (Losartan 25 Mg Tablet) 25 mg PO QDAY [facility] Metaxalone (Metaxalone 800 Mg Tablet) 800 mg PO TID PRN PRN Reason: muscle pain Metoprolol Succinate (Metoprolol Succinate 50 Mg Tab.Xl.24h) 50 mg PO QDAY [facility] Modafinil (Modafinil 200 Mg Tablet) 200 mg PO QAM [facility] Montelukast Sodium (Montelukast 10 Mg Tablet) 0 mg PO .COMPLEX [facility] Non-Formulary Medication (Azelastine) 1 drp OPHTHALMIC BID [facility] Last Admin: 07/31/22 20:57 Dose: Not Given Non-Formulary Medication (Folic Acid) 1 mg PO QDAY [facility] Non-Formulary Medication (L. Acidophilus/Bifid. Animalis [Daily Probiotic]) 2 cap PO BID [facility] Last Admin: 07/31/22 20:57 Dose: Not Given Non-Formulary Medication (Mometasone-Formoterol [Dulera]) 2 puff INHALATION BID [facility] Last Admin: 07/31/22 20:57 Dose: Not Given Non-Formulary Medication (Omeprazole) 40 mg PO QDAY [facility] Non-Formulary Medication (Oxycodone-Acetaminophen) 1 tab PO Q4-6H PRN PRN Reason: pain Non-Formulary Medication (Progesterone Micronized) 100 mg PO QPM [facility] Last Admin: 07/31/22 20:59 Dose: Not Given Non-Formulary Medication (Rosuvastatin) 20 mg PO QDAY [facility] Non-Formulary Medication (Tolterodine) 2 mg PO BID PRN PRN Reason: overactive bladder Ondansetron HCl (Ondansetron 4 Mg/2 Ml Vial) 4 mg IV Q4HP PRN PRN Reason: Nausea And Vomiting Polyethylene Glycol (Polyethylene Glycol 3350 17 Gm Packet) 17 gm PO DAILYP PRN PRN Reason: Constipation Potassium Chloride (Potassium Chloride 20 Meq Tablet) 40 meq PO UD PRN PRN Reason: Potssium is 3-3.5 Potassium Chloride (Potassium Chloride 20 Meq Tablet) 40 meq PO UD PRN PRN Reason: Potassium < 3 Fluticasone/Salmeterol (Fluticasone/Salmeterol 500/50 Inhaler #14) 1 puff INH BID [facility] Senna (Sennosides 1 Tablet) 2 tab PO DAILYP PRN PRN Reason: Constipation Sodium Chloride (0.9 % Sodium Chloride 10 Ml Syringe) 10 ml IV Q8 [facility] Last Admin: 07/31/22 20:58 Dose: 10 ml Spironolactone (Spironolactone 25 Mg Tablet) 50 mg PO QDAY [facility] Tramadol HCl (Tramadol (Pp) 50 Mg Tablet (#4)) 50 mg PO Q4H PRN PRN Reason: pain A/P Narrative A/P Narrative: A: *Right pelvis fracture: Nonoperative *Intractable pain: *Inability to care for self at home/unstable on feet: *Obesity: BMI 42 *ALDO: On CPAP *COPD (2L O2@night): *DM2 w/Neuropathy: *Hypothyroidism: *CKD II: *Depression: *GERD: *HTN/HLD: P: -pain control -pt/ot -f/u with Dr. Calvillo outpt -home cpap -ssi -cont home statin/vy/ssri/levothyrx -cont home IH -cont home ARB/BB -CM for placement -ppx: Lovenox / home ppi Time Spent With Patient Time: Total time spent is greater than 50% in coordination of care (as documented) at patient's floor/unit and/or counseling patient: QUALITY Stroke Symptom Onset Unknown: No VTE Deep Vein Thrombosis/Pulmonary Embolism Present on Admission: No
[2022-08-01] MEDS ORDERED: traMADol 50 MG TABLET PO PRN (08:00)
[2022-08-01] MEDS ORDERED: oxyCODONE HCL 5 MG TABLET PO PRN (08:27)
[2022-08-01] MEDS ORDERED: TOLTERODINE 1 MG TABLET PO PRN (08:30)
[2022-08-01] MEDS: OMEPRAZOLE 20 MG CAPSULE PO SCH (08:46)
[2022-08-01] MEDS: FLUTICASONE/SALMETEROL 500/50 INHALER #14 INH SCH ×3 (09:31→20:36)
[2022-08-01] MEDS: LACTOBACILLUS 1 CAPSULE PO SCH ×2 (09:32→20:34)
[2022-08-01] MEDS: ENOXAPARIN 40 MG/0.4 ML SYRINGE SQ SCH (09:32)
[2022-08-01] MEDS: MOMETASONE FORMOTEROL INH SCH ×2 (09:33→20:41)
[2022-08-01] MEDS: LOSARTAN 25 MG TABLET PO SCH (09:33)
[2022-08-01] MEDS: FOLIC ACID 1 MG TABLET PO SCH (09:33)
[2022-08-01] MEDS: CITALOPRAM 20 MG TABLET PO SCH (09:33)
[2022-08-01] MEDS: LEVOTHYROXINE 25 MCG TABLET PO SCH (09:33)
[2022-08-01] MEDS: METOPROLOL SUCCINATE 50 MG TAB.XL.24H PO SCH (09:33)
[2022-08-01] MEDS: SPIRONOLACTONE 25 MG TABLET PO SCH (09:33)
[2022-08-01] MEDS: DOCUSATE SODIUM 100 MG CAPSULE PO SCH ×2 (09:33→20:34)
[2022-08-01] MEDS: oxyCODONE/APAP 5/325MG TABLET PO PRN ×3 (09:34→20:34)
[2022-08-01] MEDS: MODAFINIL 200 MG TABLET PO SCH (09:44)
[2022-08-01] MEDS: [UNRECOGNIZED DRUG - MIXTURE] TOPICAL SCH (10:00)
--- NOTE | 2022-08-01 13:16 | XRay Report ---
CLINICAL INFORMATION: Trauma COMPARISON: Plain films 05/16/2015 and chest abdomen and pelvic CT 07/31/2022 FINDINGS: A 5 cm osteolytic lesion is seen in the supra-acetabular region of the inferior right ilium. There is a comminuted nondisplaced transverse fracture through this lesion. Right total hip prostheses is anatomically aligned without loosening or infection. There is mild degenerative change seen in both SI and left hip joint. No significant soft tissue abnormality. IMPRESSION: 5 cm osteolytic lesion in the supra-acetabular region of the inferior right ilium with a pathologic mildly comminuted transverse fracture extending through this lesion. This lesion was apparent in retrospect on the 2014 plain films. At that time, it was only 4.2 cm. 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
[2022-08-01] MEDS: ATORVASTATIN 40 MG TABLET PO SCH (20:34)
[2022-08-01] MEDS: MONTELUKAST 10 MG TABLET PO SCH (20:34)
[2022-08-01] MEDS: Progesterone Micronized 100 mg capsule PO SCH (20:39)
[2022-08-02] MEDS: 0.9 % SODIUM CHLORIDE 10 ML SYRINGE IV SCH ×3 (07:57→21:03)
[2022-08-02] MEDS: HYDROmorphone 1 MG/ML SYRINGE IV PRN ×4 (07:57→23:26)
[2022-08-02] MEDS: OMEPRAZOLE 20 MG CAPSULE PO SCH (07:57)
[2022-08-02] MEDS: INSULIN LISPRO 1 UNIT/0.01 ML UNIT SQ SCH ×4 (08:01→20:51)
--- NOTE | 2022-08-02 08:13 | Internal Med Progress Note ---
SUBJECTIVE Subjective Patient information: Note initiated : 08/02/22 at 8:11 am Service Date, if different from initiated Date: [] Patient: Magda Sosa a 71 y/o F admitted on 07/31/22 for hip pain. Chief Complaint: [] Interval history: History of present illness: Ms. Sosa is a 71 year old F Presents to ED with Right hip pain. She says the right hip pain has been going on for about a month but worsened 2 weeks ago and then over the past week it been really painful shooting down into her right leg. She denies any trauma that she can remember although she does say she sat down really hard on her bottom for several months ago. CT of the pelvis showed a 5x3cm osteolytic lesion right supra-acetabular region with a transverse nondisplaced likely pathological fracture. Case was discussed with Dr. Calvillo, this was nonoperative. He recommended patient discharged home with follow-up with him in the office. However the patient has uncontrolled pain is and is unstable on her feet and lives by herself. Patient felt to be unsafe discharge and thus will be admitted and likely need placement to a rehab facility and then will follow-up with Dr. Calvillo Once out of the hospital. Patient denies any fever chills lightheadedness nausea vomiting chest pain shortness of breath. 08/01 Complains of pain, relatively controlled. We will try to keep up more with that today. Will need to work with PT OT. 08/02 Patient slept well. Pain better controlled. Discussed case with Dr. Calvillo who discussed with Dr. Ramirez who did original hip surgery. Dr. Ramirez to see her in his office next week. No overnight event or new complaints. Patient has had good blood glucose control and patient says she keeps a strict control at home and request to decrease the Accu-Cheks. Review of Systems: denies headache/fever/chills/nausea/vomiting/chest or abdominal pain/cough/dyspnea/diarrhea. Otherwise see above. PHYSICAL EXAM: General: Alert, Awake, No acute Distress, obese Eyes/N/T: EOMI, no scleral icterus Head/Neck: neck supple, full ROM, CV: RRR, 1/6SM, Pulm: Clear b/l, no wheezing/rhonchi/rales, no respiratory distress Abd: soft, nontender, +BS x4 Ext: no clubbing/cyanosis/edema, nontender Neuro: Alert, no focal deficits, moves all extremities, sensations intact b/l upper/lower Psychiatric: Skin: warm/dry, normal color Constitutional Vitals: Vital Signs Temp Pulse Resp BP Pulse Ox O2 Del Method O2 Flow Rate 97.4 F 61 16 121/63 99 CPAP 2 08/02/22 04:00 08/02/22 04:00 08/02/22 04:00 08/02/22 04:00 08/02/22 04:00 08/02/22 04:00 08/02/22 04:00 Period Temp Pulse Resp BP Sys/[place] Pulse Ox O2 Del Method O2 Flow Rate Last 24 Hr 97.1 F-98.6 F 61-74 16-18 120-144/59-84 98-100 CPAP-Room Air 2-2 Intake and Output 08/01/22 08/02/22 08/02/22 19:59 03:59 11:59 Intake Total 800 300 480 Output Total 1550 850 Balance -750 -550 480 Weight 103.283 kg Intake & Output: Intake & Output 08/01/22 08/02/22 08/02/22 19:59 03:59 11:59 Intake Total 800 300 480 Output Total 1550 850 Balance -750 -550 480 Weight 103.283 kg Intake: Oral 800 300 480 Output: Void Amount 1550 Urine/Stool Mix 850 Other: Urine Appearance Clear Clear Urine Color Yellow Yellow Urine Odor Normal Stool Size Moderate Stool Color Brown Stool Consistency Soft # Bowel Movements 1 OBJ DATA Labs 07/31/22 10:08 07/31/22 10:08 Labs: Abnormal Lab Results 07/31/22 07/31/22 10:42 10:08 Lymph # (Auto) 1.30 L POC BUN 22 H Meds: Medications Acetaminophen (Acetaminophen 325 Mg Tablet) 650 mg PO Q6HP PRN; Protocol PRN Reason: Per Pain Protocol/Fever > 101 Albuterol/Ipratropium (Ipratropium/Albuterol 3 Ml Ampul.Neb) 3 ml NEB Q4HP PRN PRN Reason: Shortness Of Breath Atorvastatin Calcium (Atorvastatin 40 Mg Tablet) 40 mg PO HS MIRIAM Last Admin: 08/01/22 20:34 Dose: 40 mg Celecoxib (Celecoxib 200 Mg Capsule) 200 mg PO QDAY PRN PRN Reason: pain Last Admin: 08/01/22 07:12 Dose: 200 mg Citalopram Hydrobromide (Citalopram 20 Mg Tablet) 20 mg PO QDAY [facility] Last Admin: 08/01/22 09:33 Dose: 20 mg Dextrose (Dextrose 50% 50 Ml Vial) 0 ml IV UD PRN PRN Reason: Per Sliding Scale Diagnostic Test (Pha) (Accu-Chek 1 Each Strip) 1 each FS ACHS [facility] Last Admin: 08/02/22 08:01 Dose: 1 each Docusate Sodium (Docusate Sodium 100 Mg Capsule) 100 mg PO BID [facility] Last Admin: 08/01/22 20:34 Dose: 100 mg Enoxaparin Sodium (Enoxaparin 40 Mg/0.4 Ml Syringe) 40 mg SQ DAILY [facility] Last Admin: 08/01/22 09:32 Dose: 40 mg Folic Acid (Folic Acid 1 Mg Tablet) 1 mg PO DAILY [facility] Last Admin: 08/01/22 09:33 Dose: 1 mg Glucose (Dextrose 31 Gm Oral.Susp) 15 gm PO PRN PRN PRN Reason: Hypoglycemia Hydromorphone HCl (Hydromorphone 1 Mg/Ml Syringe) 0 mg IV Q2HP PRN; Protocol PRN Reason: Per Pain Protocol Last Admin: 08/02/22 07:57 Dose: 1 mg Hydroxyzine HCl (Hydroxyzine 25 Mg Tablet) 25 mg PO BID PRN PRN Reason: itching Potassium Chloride 40 meq/ (Dextrose) 520 mls @ 130 mls/hr IV UD PRN PRN Reason: Potassium < 3 Magnesium Sulfate (Magnesium Sulfate) 2 gm in 50 mls @ 50 mls/hr IV UD PRN PRN Reason: Magnesium </= 1.6 Insulin Human Lispro (Insulin Lispro 1 Unit/0.01 Ml Unit) 0 unit SQ [facility]; Protocol Last Admin: 08/02/22 08:01 Dose: Not Given Lactobacillus Rhamnosus (Lactobacillus 1 Capsule) 2 cap PO BID [facility] Last Admin: 08/01/22 20:34 Dose: 2 cap Levothyroxine Sodium (Levothyroxine 25 Mcg Tablet) 25 mcg PO QDAY [facility] Last Admin: 08/01/22 09:33 Dose: 25 mcg Losartan Potassium (Losartan 25 Mg Tablet) 25 mg PO QDAY [facility] Last Admin: 08/01/22 09:33 Dose: 25 mg Metaxalone (Metaxalone 800 Mg Tablet) 800 mg PO TIDP PRN PRN Reason: muscle pain Metoprolol Succinate (Metoprolol Succinate 50 Mg Tab.Xl.24h) 50 mg PO QDAY [facility] Last Admin: 08/01/22 09:33 Dose: 50 mg Modafinil (Modafinil 200 Mg Tablet) 200 mg PO QAM [facility] Last Admin: 08/01/22 09:44 Dose: Not Given Montelukast Sodium (Montelukast 10 Mg Tablet) 10 mg PO HS [facility] Last Admin: 08/01/22 20:34 Dose: 10 mg Omeprazole (Omeprazole 20 Mg Capsule) 40 mg PO ACB [facility] Last Admin: 08/02/22 07:57 Dose: 40 mg Ondansetron HCl (Ondansetron 4 Mg/2 Ml Vial) 4 mg IV Q4HP PRN PRN Reason: Nausea And Vomiting Oxycodone HCl (Oxycodone Hcl 5 Mg Tablet) 2.5 mg PO Q4-6HP PRN PRN Reason: Pain Oxycodone/Acetaminophen (Oxycodone/Apap 5/325mg Tablet) 1 tab PO Q4-6HP PRN PRN Reason: Pain Last Admin: 08/01/22 20:34 Dose: 1 tab Azelastine 0.05 % (Drops) 1 dose OU BID [facility] Last Admin: 08/01/22 20:36 Dose: Not Given Mometasone- Formoterol [Dulera] 200-5 Mcg Inhaler 2 dose INH BID [facility] Last Admin: 08/01/22 20:41 Dose: 2 dose Progesterone Micronized 100 Mg Capsule 1 dose PO QPM [facility] Last Admin: 08/01/22 20:39 Dose: Not Given C-E2 0.4 Mg/Test 5 Mg/5 Ml Transdermal Compound 1 dose TOPICAL DAILY [facility] Last Admin: 08/01/22 10:00 Dose: 1 dose Polyethylene Glycol (Polyethylene Glycol 3350 17 Gm Packet) 17 gm PO DAILYP PRN PRN Reason: Constipation Potassium Chloride (Potassium Chloride 20 Meq Tablet) 40 meq PO UD PRN PRN Reason: Potssium is 3-3.5 Potassium Chloride (Potassium Chloride 20 Meq Tablet) 40 meq PO UD PRN PRN Reason: Potassium < 3 Fluticasone/Salmeterol (Fluticasone/Salmeterol 500/50 Inhaler #14) 1 puff INH BID [facility] Last Admin: 08/01/22 20:36 Dose: Not Given Senna (Sennosides 1 Tablet) 2 tab PO DAILYP PRN PRN Reason: Constipation Sodium Chloride (0.9 % Sodium Chloride 10 Ml Syringe) 10 ml IV Q8 [facility] Last Admin: 08/02/22 07:57 Dose: 10 ml Spironolactone (Spironolactone 25 Mg Tablet) 50 mg PO QDAY [facility] Last Admin: 08/01/22 09:33 Dose: 50 mg Tolterodine Tartrate (Tolterodine 1 Mg Tablet) 2 mg PO BIDP PRN PRN Reason: overactive bladder Tramadol HCl (Tramadol 50 Mg Tablet) 50 mg PO Q4HP PRN PRN Reason: Pain A/P Narrative A/P Narrative: A: *Right pelvis fracture: Nonoperative -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 Calvillo d/s dr. Og, f/u in office next week -pain control -pt/ot -home cpap -ssi -cont home statin/vy/ssri/levothyrx -cont home IH -cont home ARB/BB -CM for placement -ppx: Lovenox / home ppi Time Spent With Patient Time: Total time spent is greater than 50% in coordination of care (as documented) at patient's floor/unit and/or counseling patient: QUALITY Stroke Symptom Onset Unknown: No VTE Deep Vein Thrombosis/Pulmonary Embolism Present on Admission: No
[2022-08-02] MEDS: [UNRECOGNIZED DRUG - MIXTURE] TOPICAL SCH (08:59)
[2022-08-02] MEDS: CITALOPRAM 20 MG TABLET PO SCH (09:00)
[2022-08-02] MEDS: LEVOTHYROXINE 25 MCG TABLET PO SCH (09:00)
[2022-08-02] MEDS: METOPROLOL SUCCINATE 50 MG TAB.XL.24H PO SCH (09:00)
[2022-08-02] MEDS: SPIRONOLACTONE 25 MG TABLET PO SCH (09:00)
[2022-08-02] MEDS: FOLIC ACID 1 MG TABLET PO SCH (09:00)
[2022-08-02] MEDS: CELECOXIB 200 MG CAPSULE PO PRN (09:00)
[2022-08-02] MEDS: LACTOBACILLUS 1 CAPSULE PO SCH ×2 (09:00→20:47)
[2022-08-02] MEDS: ENOXAPARIN 40 MG/0.4 ML SYRINGE SQ SCH (09:00)
[2022-08-02] MEDS: LOSARTAN 25 MG TABLET PO SCH (09:00)
[2022-08-02] MEDS: FLUTICASONE/SALMETEROL 500/50 INHALER #14 INH SCH ×2 (09:01→20:50)
[2022-08-02] MEDS: DOCUSATE SODIUM 100 MG CAPSULE PO SCH (09:01)
[2022-08-02] MEDS: MOMETASONE FORMOTEROL INH SCH ×2 (09:01→21:02)
[2022-08-02] MEDS: MODAFINIL 200 MG TABLET PO SCH (09:02)
[2022-08-02] MEDS: oxyCODONE/APAP 5/325MG TABLET PO PRN (13:32)
[2022-08-02] MEDS: oxyCODONE/APAP 10/325MG TABLET PO PRN ×2 (16:10→21:13)
[2022-08-02] MEDS: MONTELUKAST 10 MG TABLET PO SCH (20:47)
[2022-08-02] MEDS: ATORVASTATIN 40 MG TABLET PO SCH (20:47)
[2022-08-02] MEDS: Progesterone Micronized 100 mg capsule PO SCH (20:48)
[2022-08-02] MEDS: METAXALONE 800 MG TABLET PO PRN (21:00)
[2022-08-03] MEDS: hydrOXYzine 25 MG TABLET PO PRN ×2 (00:08→08:59)
[2022-08-03] MEDS: oxyCODONE/APAP 10/325MG TABLET PO PRN ×2 (04:38→08:31)
[2022-08-03] MEDS: 0.9 % SODIUM CHLORIDE 10 ML SYRINGE IV SCH (06:01)
--- NOTE | 2022-08-03 07:06 | Consultation ---
DATE OF CONSULTATION: 08/01/2022 IDENTIFICATION: A 71-year-old female. CHIEF COMPLAINT: Right hip pain. HISTORY: Ms. Sosa presents after a CT scan of her right hip has demonstrated a fracture through an osteolytic lesion above her right hip acetabulum. She has been having pain for over a month increased in the last ten days or two weeks. She was seen in the pain clinic and a CT scan of the abdomen and pelvis was obtained. It demonstrates a osteolytic lesion above her acetabulum with a fracture through this lesion. 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 PAST SURGICAL HISTORY: She had bilateral total knees by Dr Chase Ramirez. Right total hip was done by Dr. Chase Ramirez. She has had shoulder surgery also by Dr. Ramirez. She has had other surgeries that are also abdominal surgeries which are noted in her medical records. MEDICTIONS: Multiple. Please see medical record. ALLERGIES: BUPROPION, LISINOPRIL, AMOXICILLIN, MORPHINE, MACROBID. PHYSICAL EXAMINATION: General: She is awake and alert. She is sitting upright in the chair, quite comfortable. HEENT: Head normocephalic, atraumatic. Eyes PERRLA. Conjunctivae clear. ENT within normal limits. Heart: Regular. Lungs: Clear. Abdomen: Benign. Musculoskeletal: She does have pain with hip range of motion and percussion of her heel. She is without gross neurovascular deficit although does have some diabetic neuropathy. RADIOGRAPHS: She has a CT scan which demonstrates this osteolytic lesion and there is a transverse process just traversing this area of osteolysis. IMPRESSION: Fracture of the pelvis which involves area of osteolysis. It probably does represent a lytic lesion secondary to wear debris. Her surgeon, Dr. Ramirez, has been contacted. I do think this will require revision. He will be willing to see her and proceed with surgery if could be done outpatient, otherwise he recommends transfer to [place] for a joint surgeon. GDD:yadira Job ID: [id number] Doc ID: [id number] Dung Calvillo MD
[2022-08-03] MEDS: CELECOXIB 200 MG CAPSULE PO PRN (08:30)
[2022-08-03] MEDS: ENOXAPARIN 40 MG/0.4 ML SYRINGE SQ SCH (08:30)
[2022-08-03] MEDS: INSULIN LISPRO 1 UNIT/0.01 ML UNIT SQ SCH (08:32)
[2022-08-03] MEDS: OMEPRAZOLE 20 MG CAPSULE PO SCH (08:32)
[2022-08-03] MEDS: LACTOBACILLUS 1 CAPSULE PO SCH (08:32)
[2022-08-03] MEDS: CITALOPRAM 20 MG TABLET PO SCH (08:33)
[2022-08-03] MEDS: METOPROLOL SUCCINATE 50 MG TAB.XL.24H PO SCH (08:33)
[2022-08-03] MEDS: SPIRONOLACTONE 25 MG TABLET PO SCH (08:33)
[2022-08-03] MEDS: LOSARTAN 25 MG TABLET PO SCH (08:33)
[2022-08-03] MEDS: LEVOTHYROXINE 25 MCG TABLET PO SCH (08:33)
[2022-08-03] MEDS: FOLIC ACID 1 MG TABLET PO SCH (08:34)
[2022-08-03] MEDS: FLUTICASONE/SALMETEROL 500/50 INHALER #14 INH SCH (08:36)
[2022-08-03] MEDS: MOMETASONE FORMOTEROL INH SCH (08:37)
[2022-08-03] MEDS: MODAFINIL 200 MG TABLET PO SCH (08:37)
[2022-08-03] MEDS: [UNRECOGNIZED DRUG - MIXTURE] TOPICAL SCH (08:37)
[2022-08-03] MEDS: METAXALONE 800 MG TABLET PO PRN (08:45)
--- NOTE | 2022-08-03 08:57 | Discharge Summary ---
Discharge Provider Provider IMPORTANT FOLLOW-UP INFORMATION FOR PCP: Patient information: Note initiated : 08/03/22 at 8:54 am Service Date, if different from initiated Date: [] Patient: Magda Sosa 71 y/o F admitted on 07/31/22 for hip pain. Chief Complaint: [] Date of admission: 07/31/22 18:20 Discharge date: 08/03/22 Primary care physician: Sony Sorenson PA-C Attending physician on admission: Ryan Meyer Consults: 07/31/22 Consult to Physician [CONS] Stat Comment: Consulting Provider: Ryan Meyer Reason For Exam: Physician to Consult 07/31/22 16:15 Consult to Physician [CONS] Stat Comment: Consulting Provider: Dung Calvillo Reason For Exam: Physician to Consult Attending physician on discharge: Chi Pedro Pui COURSE Hospital Course Hospital course: Ms. Sosa is a 71 year old F Presents to ED with Right hip pain. She says the right hip pain has been going on for about a month but worsened 2 weeks ago and then over the past week it been really painful shooting down into her right leg. She denies any trauma that she can remember although she does say she sat down really hard on her bottom for several months ago. CT of the pelvis showed a 5x3cm osteolytic lesion right supra-acetabular region with a transverse nondisplaced likely pathological fracture. Case was discussed with Dr. Calvillo, this was nonoperative. He recommended patient discharged home with follow-up with him in the office. However the patient has uncontrolled pain is and is unstable on her feet and l [place] by herself. Patient felt to be unsafe discharge and thus will be admitted and likely need placement to a rehab facility and then will follow-up with Dr. Calvillo Once out of the hospital. Patient denies any fever chills lightheadedness nausea vomiting chest pain shortness of breath. 08/01 Complains of pain, relatively controlled. We will try to keep up more with that today. Will need to work with PT OT. 08/02 Patient slept well. Pain better controlled. Discussed case with Dr. Calvillo who discussed with Dr. Ramirez who did original hip surgery. Dr. Ramirez to see her in his office next week. No overnight event or new complaints. Patient has had good blood glucose control and patient says she keeps a strict control at home and request to decrease the Accu-Cheks. 08/03: Discharged to SN[facility]. Follow up with orthopedic surgeon in 1 week. Rx given. All questions were answered prior to patient being physically discharged. Discharge diagnosis: Hip fracture Time Spent with Patient Time attestation: Total time spent providing and/or coordinating discharge services: Time spent: Greater than 30 minutes EXAM Constitutional Vitals: Temp Pulse Resp BP Pulse Ox O2 Del Method O2 Flow Rate 36.4 C 71 16 126/57 96 Room Air 2 08/03/22 07:46 08/03/22 07:46 08/03/22 07:46 08/03/22 07:46 08/03/22 07:46 08/03/22 07:46 08/03/22 04:31 General appearance: cooperative and no acute distress Head Head exam: Present atraumatic and normocephalic Eye Eye exam: Present EOMI and PERRL ENT ENT exam: Present mucous membranes moist, normal exam and normal external ear exam Neck Neck exam: Present normal inspection; Absent lymphadenopathy, tenderness or thyromegaly Respiratory Respiratory exam: Absent accessory muscle use, respiratory distress or wheezes Cardiovascular Cardiovascular exam: Present normal rate and rhythm; Absent JVD GI/Abdominal GI/Abdominal exam: Present normal bowel sounds and soft; Absent organomegaly or tenderness Extremities Exam Extremities exam: Present normal capillary refill, normal inspection and tenderness; Absent full ROM Neurological Exam Neurological exam: Present alert, CN II-XII intact and oriented X3; Absent motor sensory deficit Psychiatric Psychiatric exam: Present normal affect and normal mood; Absent anxious or depressed Skin Skin exam: Present dry and intact Discharge Plan Patient/Caregiver Discharge Instructions Activity: increase activity as tolerated Diet: Consistent Carbohydrate Prescriptions: New fluticasone propion-salmeterol [Advair Diskus] 500-50 mcg/dose Blister With Device 1 ea inhalation BID Qty: 1 0RF oxycodone-acetaminophen 10-325 mg Tablet 1 tab PO Q4-6HP PRN (Reason: Per Pain Protocol) Qty: 20 0RF lidocaine 5 % adhesive patch,medicated 1 patch topical QDAY Qty: 30 0RF Rx Instructions: leave on most painful area for up to 12 hrs Continued albuterol sulfate 90 mcg/actuation HFA aerosol inhaler 180 mcg INHALATION Q6H PRN (Reason: bronchospasm) Qty: 18 1RF Dulera 200-5 mcg/actuation HFA aerosol inhaler 2 puff INHALATION BID Qty: 13 3RF Rx Instructions: uses either dulera or symbicort, not both azelastine 0.05 % drops 1 drp OPHTHALMIC BID Qty: 6 7RF (DME) blood-glucose meter [OneTouch Verio Meter] Misc See Rx Instructions .ROUTE .MEDSUPPLY Qty: 1 0RF Rx Instructions: Check blood sugar once daily (DME) OneTouch Verio test strips Strip See Rx Instructions .ROUTE .MEDSUPPLY Qty: 50 4RF Rx Instructions: Check blood sugar once daily Testosterone Transdermal 5 mg TRANSDERMA .QD Qty: 30 3RF montelukast 10 mg tablet See Rx Instructions .ROUTE .COMPLEX Qty: 90 3RF Dose Instruction: TAKE ONE TABLET BY MOUTH ONE TIME DAILY IN THE EVENING Rx Instructions: TAKE ONE TABLET BY MOUTH ONE TIME DAILY IN THE EVENING omeprazole 40 mg capsule,delayed release(DR/EC) 40 mg PO QDAY Qty: 90 3RF tolterodine 2 mg tablet 2 mg PO BID PRN (Reason: overactive bladder) Qty: 180 1RF metaxalone 800 mg tablet 800 mg PO TID PRN (Reason: muscle pain) Qty: 270 0RF progesterone micronized 100 mg capsule 100 mg PO QPM Qty: 90 3RF gabapentin 600 mg tablet See Rx Instructions .ROUTE .COMPLEX Qty: 270 3RF Dose Instruction: TAKE ONE TABLET BY MOUTH THREE TIMES DAILY Rx Instructions: TAKE ONE TABLET BY MOUTH THREE TIMES DAILY losartan 25 mg tablet 25 mg PO QDAY Qty: 100 3RF spironolactone 25 mg tablet 50 mg PO QDAY Qty: 180 3RF metoprolol succinate 50 mg tablet extended release 24 hr 50 mg PO QDAY Qty: 90 0RF celecoxib 200 mg capsule 200 mg PO QDAY Qty: 100 2RF modafinil 200 mg tablet 200 mg PO QAM Qty: 90 0RF rosuvastatin 20 mg tablet 20 mg PO QDAY Qty: 90 0RF levothyroxine 25 mcg tablet 25 mcg PO QDAY Qty: 90 3RF citalopram 20 mg tablet 20 mg PO QDAY Qty: 90 1RF hydroxyzine HCl 25 mg tablet 25 mg PO BID PRN (Reason: itching) Qty: 60 0RF potassium chloride 10 mEq tablet extended release 10 meq PO BID Qty: 180 3RF Rx Instructions: give with food (meal/snack) aspirin 81 mg tablet,delayed release (DR/EC) 81 mg PO QDAY Ultra CoQ10 75 mg capsule See Rx Instructions PO .COMPLEX Rx Instructions: unknown PO unknown; (DME) diabetic shoes Qty: 2 0RF Rx Instructions: Wear daily (DME) VPAP 0 .Route .MEDSUPPLY Qty: 1 0RF Dose Instruction: As directed Rx Instructions: As directed glucosamine 116 mg-chondroitin 100 mg-dietary supplement #25 capsule 116-100 mg capsule 1 cap PO BID multivitamin 1 EACH tablet 1 each PO DAILY fish oil-dha-epa 1 EACH capsule 1 each PO DAILY calcium carb,[id number] D3 1 EACH tablet 1 each PO DAILY cholecalciferol (vitamin D3) 2,000 UNIT tablet 2,000 unit PO DAILY flunisolide 1 SPRAY bottle 2 spray NATO BID ondansetron 4 mg tablet,disintegrating 4 mg PO Q6H PRN (Reason: nausea and vomiting) Qty: 20 0RF turmeric root extract [Curcuplex-95] 500 mg Capsule 1 mg PO BID Daily Probiotic 2.5 billion cell Capsule 2 cap PO BID folic acid 1 mg PO QDAY Estradiol Transdermal 0.4 mg TRANSDERMA QDAY Rx Instructions: Continue same compound budesonide-formoterol [Symbicort] 80-4.5 mcg/actuation Hfa Aerosol Inhaler 2 puff INHALATION BID tramadol 50 mg tablet 50 mg PO Q4H MDD 7 PRN (Reason: pain) Qty: 20 0RF Rx Instructions: *Must last 30 days* Discontinued oxycodone-acetaminophen 7.5-325 mg tablet 1 tab PO Q4-6H MDD 4 PRN (Reason: pain) Qty: 40 0RF Other Ambulatory Orders: OT Discharge Order (Routine) Facility: [facility] - Location: [facility] Ordered By: Paresh Quintana Physical Therapy at Discharge - General (Routine) Facility: [facility] - Location: [facility] Ordered By: Paresh Quintana Follow Up Plan Follow up with: Dung Calvillo MD [Physician] - Sony Sorenson PA-C [Primary Care Provider] - Patient Disposition: Xfer SNF Rehab Potential: Good I certify that the patient requires SNF services: Yes Overall status at discharge: patient is progressing back to baseline Discharge Orders: Discharge Order (Routine); Ordered 08/03/22 Ordered By: Paresh RENDON VTE Deep Vein Thrombosis/Pulmonary Embolism Present on Admission: No
== END 2022-08-03 10:10 | DRG 543 ==
LOC: ED 09:52 → MEDSUR 18:20
PROVIDERS: ADMIT Internal Medicine; ATTEND Internal Medicine